=== PATIENT | male | born 1995 | race Two or more races ===

== ENCOUNTER 2018-11-02 01:30 | Emergency (ER) | payer BC ==
[~2018-11-02] VITALS: Ht 175.3 cm; Wt 88.5 kg
[2018-11-02 01:40] VITALS: BP 101/58
--- NOTE | 2018-11-02 01:40 | NUR ---
ED Nurse Note: pt walked in to ED c/O symcope. pt reports KO and hit his head on concrete. pain 8/10 to left side of the head. Bp 101/58, hr 49. Pt is alert x4. pt reports Nausea.
--- NOTE | 2018-11-02 01:52 | Emergency Room Report ---
History of Present Illness General Chief Complaint: Syncope Source: Patient Present Illness HPI Disclaimer: Please note that this report is being documented using DRAGON technology. This can lead to erroneous entry secondary to incorrect interpretation by the dictating instrument. HPI: 23-year-old male with no reported medical history presents for evaluation after syncopal episode with a head injury. The patient states he was feeling lightheaded for the past several few hours but denies any vertiginous symptoms. He had a witnessed loss of consciousness and a fall from standing striking his head against the concrete just prior to arrival. He is complaining of a significant headache and tension in his neck. Denies prior episodes of syncope. He has been told that he has a low heart rate many times before. He states he has not been eating or drinking very much today and admits to using marijuana earlier in the evening but denies any other drug or alcohol use. He currently denies any chest pain, difficulty breathing, vomiting, recent illness. PMH: None PSH: None Allergies: None Social Hx: THC use. Denies drug or alcohol abuse Allergies: Coded Allergies: No Known Allergies (Unverified , 11/02/18) Nursing Documentation-PMH Past Medical History: No Stated History Review of Systems All Other Systems: negative except mentioned in HPI Physical Exam Vital Signs Date Time Temp Pulse Resp B/P (MAP) Pulse Ox O2 Delivery O2 Flow Rate FiO2 11/02/18 01:32 98.1 47 18 100/42 (61) 99 Room Air General: Awake and alert, no acute distress HEENT: Normocephalic, atraumatic. There are no scalp or face hematomas, lacerations or abrasions. No tenderness or soft tissue swelling over the facial bones. EOMI. PERRLA. No septal hematoma. No oral lacerations. Dentition is intact. No malocclusion Neck: Supple, trachea midline. Arrives without cervical collar Chest Wall: No tenderness, no deformity, no crepitus CV: Bradycardic, regular rhythm. S1 and S2 normal. No murmur appreciated Resp: Normal work of breathing. No cough, wheezing or crackles appreciated Abd: Soft, nontender, nondistended Skin: Intact. Circular areas of ecchymosis over the back consistent with cupping MSK: Normal tone and bulk. No obvious deformity. Moving all extremities. Ambulating without difficulty. Neuro: Awake and alert. Mentating appropriately. Sensation is intact to light touch over the dermatomes of the upper and lower extremities Spine: Notes tenderness palpation in the midline in the lower cervical and upper thoracic spine. No step-off or deformity. Remainder the spine is nontender, no significant paraspinal tenderness Medical Decision Making Diagnostic Impression: Primary Impression: Syncope Additional Impressions: Bradycardia Brain cyst Closed head injury ER Course 23-year-old male presents for evaluation after syncopal episode with head injury just prior to arrival. He is awake, alert, neurologically intact and no major signs of trauma though complaining of a significant headache and some tension in his neck. Will obtain CT scans of the head and cervical spine in addition to basic labs. Will give IV fluids and reassess after imaging. If all are unremarkable he may be discharged home. Laboratory Tests Test 11/02/18 01:45 White Blood Count 8.9 K/UL (4.8-10.8) Red Blood Count 4.72 M/UL (4.70-6.10) Hemoglobin 15.0 G/DL (14.2-18.0) Hematocrit 42.3 % (42.0-52.0) Mean Corpuscular Volume 90 FL (80-99) Mean Corpuscular Hemoglobin 31.8 PG (27.0-31.0) H Mean Corpuscular Hemoglobin Concent 35.4 G/DL (32.0-36.0) Red Cell Distribution Width 9.9 % (11.6-14.8) L Platelet Count 227 K/UL (150-450) Mean Platelet Volume 8.0 FL (6.5-10.1) Neutrophils (%) (Auto) 37.6 % (45.0-75.0) L Lymphocytes (%) (Auto) 52.7 % (20.0-45.0) H Monocytes (%) (Auto) 6.7 % (1.0-10.0) Eosinophils (%) (Auto) 0.9 % (0.0-3.0) Basophils (%) (Auto) 2.1 % (0.0-2.0) H Sodium Level 138 MMOL/L (136-145) Potassium Level 3.4 MMOL/L (3.5-5.1) L Chloride Level 102 MMOL/L (98-107) Carbon Dioxide Level 25 MMOL/L (21-32) Anion Gap 11 mmol/L (5-15) Blood Urea Nitrogen 11 mg/dL (7-18) Creatinine 1.0 MG/DL (0.55-1.30) Estimate Glomerular Filtration Rate > 60 mL/min (>60) Glucose Level 111 MG/DL (74-106) H Calcium Level 9.1 MG/DL (8.5-10.1) Troponin I 0.032 ng/mL (0.000-0.056) EKG Diagnostic Results EKG Time: 02:03 Rate: bradycardiac Rhythm: NSR ST Segments: no acute changes Other Impression Sinus bradycardia, normal axis, normal intervals, no acute ischemic changes Rhythm Strip Diag. Results Rhythm Strip Time: 02:03 EP Interpretation: yes Rate: 50s Rhythm: NSR, no PVC's, no ectopy CT/MRI/US Diagnostic Results CT/MRI/US Diagnostic Results : Impression Preliminary Findings Only See Final Report For Complete Findings CT HEAD Without Contrast: No acute intracranial findings or skull fracture. Radiologist: Shlomo Galvan M.D. Study ready at 02:59 and initial results transmitted at 03:27 Preliminary Findings Only See Final Report For Complete Findings CT C SPINE: No acute fracture or subluxation. Radiologist: Shlomo Galvan M.D. Study ready at 03:04 and initial results transmitted at 03:27 Last Vital Signs Date Time Temp Pulse Resp B/P (MAP) Pulse Ox O2 Delivery O2 Flow Rate FiO2 11/02/18 01:32 98.1 47 18 100/42 (61) 99 Room Air Reevaluation Impression Labs have returned within normal limits. No significant anemia, signs of dehydration or cardiac ischemia. His EKG shows sinus bradycardia and the patient has been bradycardic since his arrival. He drops as low as the mid 40s during sleep but will keep a heart rate in the mid 50s while awake. He is receiving IV fluids. CT scan of the head and cervical spine show no acute fracture or dislocation, no evidence of acute intracranial injury though there is a cyst in the occipital region which may be a benign arachnoid cyst though will need close follow-up with his PMD as this appears to be a new finding. The patient states he has never had a CT scan of the head before. His friend is now present and states that he was standing up at a burger stand when he suddenly turned pale, started wobbling and then fell over striking the side of his head. He states that this is happened to him multiple times in the past. He needs close follow-up with his PMD but does not require any further emergent imaging, labs or interventions at this time. He is stable for outpatient follow -up. Can use Tylenol and Motrin as needed for aches and pains. Discussed reasons to return to the emergency department as well as need for follow-up with his PMD. He understands and agrees with this treatment plan was discharged home Disposition: HOME, SELF-CARE Condition: Improved Trevor Charlton MD Nov 02, 2018 01:52
[2018-11-02 01:54] LABS: BASOPHILS % (AUTO) 2.1 % (0.0-2.0); EOSINOPHILS % (AUTO) 0.9 % (0.0-3.0); HEMATOCRIT 42.3 % (42.0-52.0); LYMPHOCYTES % (AUTO) 52.7 % (20.0-45.0); MEAN CORPUSCULAR VOLUME 90 FL (80-99); MONOCYTES % (AUTO) 6.7 % (1.0-10.0); NEUTROPHILS % (AUTO) 37.6 % (45.0-75.0); PLATELET COUNT 227 K/UL (150-450); RED BLOOD COUNT 4.72 M/UL (4.70-6.10); RED CELL DISTRIBUTION WIDTH 9.9 % (11.6-14.8); WHITE BLOOD COUNT 8.9 K/UL (4.8-10.8)
[2018-11-02 02:06] LABS: ANION GAP 11 mmol/L (5-15); BLOOD UREA NITROGEN 11 mg/dL (7-18); CALCIUM 9.1 MG/DL (8.5-10.1); CARBON DIOXIDE 25 MMOL/L (21-32); CHLORIDE 102 MMOL/L (98-107); POTASSIUM 3.4 MMOL/L (3.5-5.1); SODIUM 138 MMOL/L (136-145)
--- NOTE | 2018-11-02 02:22 | NUR ---
ED Nurse Note: left to CT
--- NOTE | 2018-11-02 02:46 | NUR ---
ED Nurse Note: back from ct
--- NOTE | 2018-11-02 03:29 | Diagnostic Imaging Report ---
Indication: Neck pain status post injury Technique: CT spine was performed utilizing automated exposure control without intravenous contrast material. Axial sagittal and coronal images were generated. CT dose: Total DLP 512.91 mGycm; CTDI vol 21.06 mGy Comparison: None Findings: No acute cervical spine fracture is identified. Cervical lordosis is maintained, without evidence of spondylolisthesis. There is minimal degenerative change with small anterior osteophyte C5-C6. There is no significant central canal stenosis or significant bony foraminal narrowing. Please note that the central cord, disks and nerve roots are better evaluated on MRI which can be obtained for more sensitive evaluation as clinically indicated. There is no prevertebral soft tissue collection of fluid or blood. The thyroid is normal in appearance. There is a small focus of gas noted in the region of the right subclavian vein which may be related to placement of IV line/iatrogenic injection of a small amount of air. Imaged lung apices are clear. IMPRESSION: No evidence of acute cervical spine fracture or traumatic malalignment. This corresponds with the statrad preliminary report. The CT scanner at [facility] is accredited by the [employer] and the scans are performed using protocols designed to limit radiation exposure to as low as reasonably achievable to attain images of sufficient resolution adequate for diagnostic evaluation.
--- NOTE | 2018-11-02 03:29 | Diagnostic Imaging Report ---
Indication: Pain status post injury/trauma Technique: Continuous helical CT scanning of the head was performed utilizing automated exposure control without intravenous contrast material. Axial and coronal reconstructions were obtained. Comparison: None CT dose: Total DLP 1428.87 mGycm; CTDI vol 70.38 mGy Findings: There is no acute intracranial hemorrhage, mass effect or cortical edema. There is no shift of midline structures. Hernandes-white differentiation appears preserved. The ventricles, cisterns and sulci are within normal limits for age. A likely arachnoid cyst is incidentally identified in the posterior fossa. Visualized mastoid air cells and paranasal sinuses are unremarkable. No focal lesions of the bony calvarium or soft tissues of the scalp are seen. IMPRESSION: No evidence of acute intracranial hemorrhage, mass effect or cortical edema. No acute skull fracture. This corresponds with the statrad preliminary report. The CT scanner at [facility] is accredited by the [employer] and the scans are performed using protocols designed to limit radiation exposure to as low as reasonably achievable to attain images of sufficient resolution adequate for diagnostic evaluation.
[2018-11-02 03:36] VITALS: BP 100/56
--- NOTE | 2018-11-02 03:36 | NUR ---
ER DISCHARGE NOTE: Patient is cleared to be discharged per ERMD, pt is aox4, on room air, with stable vital signs. pt was given dc and instructions, pt was able to verbalize understanding, pt id band and iv site removed without complications. pt is able to ambulate with steady gait. pt took all belongings.
== END 2018-11-02 03:36 | disposition home or self-care (01) ==
LOC: EMR 02:03
DX: R55 Syncope and collapse (principal); R00.1 Bradycardia, unspecified; G93.0 Cerebral cysts; M54.2 Cervicalgia; F12.10 Cannabis abuse, uncomplicated; S09.90XA Unspecified injury of head, initial encounter; W18.39XA Other fall on same level, initial encounter; Y92.89 Other specified places as the place of occurrence of the external cause
CPT/HCPCS: 36415; 70450; 72125; 80048; 84484; 85025; 93005; 96360; 99284